=== PATIENT | female | born 1955 | race Caucasian/White ===

== ENCOUNTER 2018-04-29 03:38 | Inpatient (IN) ==
[2018-04-29] MEDS ORDERED: Sod Chloride 0.9% Inj 1,000 ML IV.SIG ONE (04:09)
[2018-04-29] MEDS ORDERED: Morphine Sulfate Inj 8 MG/ML Vial IV.PUSH ONE (04:09)
[2018-04-29 04:32] LABS: Baso % (Auto) 0.4 % (0.0-2.0); Eos # (Auto) 0.1 th/mm3 (0.0-0.4); Eos % (Auto) 1.3 % (0.0-4.0); Hematocrit 39.1 % (35.0-46.0); Hemoglobin 13.6 gm/dL (11.6-15.3); Lymph # (Auto) 2.3 th/mm3 (1.0-4.8); Lymph % (Auto) 22.8 % (9.0-44.0); Mean Corpuscular HGB Conc 34.7 % (32.0-36.0); Mean Corpuscular Hemoglobin 30.9 pg (27.0-34.0); Mean Corpuscular Volume 89.1 fL (80.0-100.0); Mean Platelet Volume 7.5 fL (7.0-11.0); Mono # (Auto) 0.7 th/mm3 (0.0-0.9); Mono % (Auto) 7.2 % (0.0-8.0); Neut # (Auto) 6.8 th/mm3 (1.8-7.7); Neut % (Auto) 68.3 % (16.0-70.0); Platelet Count 223 th/mm3 (150-450); Red Blood Count 4.39 mil/mm3 (4.00-5.30); Red Cell Distribution Width 13.7 % (11.6-17.2); White Blood Count 9.9 th/mm3 (4.0-11.0)
[2018-04-29 04:45] LABS: Alanine Aminotransferase 25 U/L (10-53); Albumin 3.6 g/dL (3.4-5.0); Anion Gap 8 meq/L (5-15); Aspartate Aminotransferase 22 U/L (15-37); Blood Urea Nitrogen 20 mg/dL (7-18); Calcium 8.6 mg/dL (8.5-10.1); Carbon Dioxide 29.2 meq/L (21.0-32.0); Chloride 105 meq/L (98-107); Glomerular Filtration Rate 59 mL/min (>89); Glucose,Random 129 mg/dL (74-106); Lipase 190 U/L (73-393); Magnesium 2.1 mg/dL (1.5-2.5); Potassium 3.7 meq/L (3.5-5.1); Sodium 142 meq/L (136-145)
[2018-04-29 04:48] LABS: Alkaline Phosphatase 98 U/L (45-117); Total Protein 7.4 g/dL (6.4-8.2)
--- NOTE | 2018-04-29 05:14 | ED ---
HPI General Chief Complaint: Abdominal Pain Stated Complaint: ABD pain Time Seen by Provider: 04/29/18 04:02 Source: patient Mode of arrival: ambulatory Limitations: no limitations History of Present Illness HPI narrative: 62 yo F c/o abdominal pain for approx 1 hour, onset sudden, timing constant. pain is severe. location is LUQ. + dysuria and frequency for past several days. pt denies fever. one episode vomiting occurred yesterday evening, which was an unexpected otherwise isolated event. no diarrhea. normal diet lately. no similar prior episodes. pt denies current followup with PMD. pt reports hx occasional benign peripheral vertigo rarely requiring treatment. Related Data Previous Rx's Medication Instructions Recorded ondansetron HCl [Zofran] 4 mg PO Q8H PRN 4 Days tab 04/29/18 oxycodone-acetaminophen [Percocet] 2 tab PO Q4-6H PRN 3 Days #12 tab 04/29/18 tamsulosin [Flomax] 0.4 mg PO DAILY #7 cap 04/29/18 Allergies Allergy/AdvReac Type Severity Reaction Status Date / Time No Known Allergies Allergy Verified 04/29/18 03:42 Review of Systems ROS: all other systems reviewed are negative [facility] Medical History Medical History History of hysterectomy (Acute) Patient denies medical problems (Acute) Surgical History Surgical History History of abdominoplasty (Acute) History of carpal tunnel surgery (Acute) Hx of breast reduction, elective (Acute) Hx of cholecystectomy (Acute) Social History Social History Smoking Status: Never smoker How Often Do You Have a Drink Containing Alcohol: Never Recent Travel in [facility] within the Last 8 Weeks: No Recent Out of Country Travel within the Last 8 Weeks: No Immunization History Tetanus Immunization: >5 Years Exam Narrative Exam Narrative: GENERAL: 62 yo F, WNWD, moderate distress 2/2 pain SKIN: Focused skin assessment warm/dry. HEAD: Atraumatic. Normocephalic. EYES: Pupils equal and round. No scleral icterus. No injection or drainage. ENT: No nasal bleeding or discharge. Mucous membranes pink and moist. NECK: Trachea midline. No JVD. CARDIOVASCULAR: Regular rate and rhythm. No murmur appreciated. RESPIRATORY: No accessory muscle use. Clear to auscultation. Breath sounds equal bilaterally. GASTROINTESTINAL: Soft. TTP LUQ. MUSCULOSKELETAL: No obvious deformities. No clubbing. No cyanosis. No edema. NEUROLOGICAL: Awake and alert. No obvious cranial nerve deficits. Motor grossly within normal limits. Normal speech. PSYCHIATRIC: Appropriate mood and affect; insight and judgment normal. Course Initial Documented Vital Signs Temperature 98.4 F 04/29/18 03:42 Pulse Rate 77 04/29/18 03:42 Respiratory Rate 20 04/29/18 03:42 Blood Pressure 147/65 H 04/29/18 03:42 Pulse Oximetry 100 04/29/18 03:42 Last Documented Vital Signs Temperature 98.4 F 04/29/18 03:42 Pulse Rate 64 04/29/18 06:00 Respiratory Rate 16 04/29/18 06:00 Blood Pressure 119/59 L 04/29/18 06:00 Pulse Oximetry 97 04/29/18 06:00 Medical Decision Making MDM Narrative Medical decision making narrative: wbc 9,900 hb 13.6 plt 223 bun/cr 20/0.97 lfts normal lipase normal ct abd/pelvis: (1) ct findings characteristic of prior cholecystectomy, hysterectomy and gastric bypass. (2) Patient's symptoms appear to be due to a 4mm left uereteric stone near the upj/proximal ureter with concomitant pelvocaliectasis of the left renal collecting system. (3) Very mild diverticular disease of the descending and sigmoid colon without diverticulitis. Multiple episodes of vomiting here in ED. Compazine and benadryl ultimately controlled vomiting. Pain effectively managed with toradol thereafter. Given multiple doses of antiemetics coupled with UTI and 4mm UPJ stoned with pelvocaliectasis, admission will be arranged for IV abx, antiemesis and pain control. d/w Dr Persaud for [facility]. Medical Screen Exam Complete: Yes Emergency Medical Condition: Yes Lab Data Result diagrams: 04/29/18 04:20 04/29/18 04:20 Lab Results 04/29/18 04/29/18 04/29/18 Range/Units 04:20 04:20 05:25 WBC 9.9 (4.0-11.0) th/mm3 RBC 4.39 (4.00-5.30) mil/mm3 Hgb 13.6 (11.6-15.3) gm/dL Hct 39.1 (35.0-46.0) % MCV 89.1 (80.0-100.0) fL MCH 30.9 (27.0-34.0) pg MCHC 34.7 (32.0-36.0) % RDW 13.7 (11.6-17.2) % Plt Count 223 (150-450) th/mm3 MPV 7.5 (7.0-11.0) fL Neut % (Auto) 68.3 (16.0-70.0) % Lymph % (Auto) 22.8 (9.0-44.0) % [place] % (Auto) 7.2 (0.0-8.0) % Eos % (Auto) 1.3 (0.0-4.0) % Baso % (Auto) 0.4 (0.0-2.0) % Neut # (Auto) 6.8 (1.8-7.7) th/mm3 Lymph # (Auto) 2.3 (1.0-4.8) th/mm3 [place] # (Auto) 0.7 (0.0-0.9) th/mm3 Eos # (Auto) 0.1 (0.0-0.4) th/mm3 Baso # (Auto) 0.0 (0.0-0.2) th/mm3 WBC Differential . Differential Comment Auto diff final Sodium 142 (136-145) meq/L Potassium 3.7 (3.5-5.1) meq/L Chloride 105 (98-107) meq/L Carbon Dioxide 29.2 (21.0-32.0) meq/L Anion Gap 8 (5-15) meq/L BUN 20 H (7-18) mg/dL Creatinine 0.97 (0.50-1.00) mg/dL Estimated GFR 59 L (>89) mL/min Random Glucose 129 H (74-106) mg/dL Calcium 8.6 (8.5-10.1) mg/dL Magnesium 2.1 (1.5-2.5) mg/dL Total Bilirubin 0.4 (0.2-1.0) mg/dL AST 22 (15-37) U/L ALT 25 (10-53) U/L Alkaline Phosphatase 98 (45-117) U/L Total Protein 7.4 (6.4-8.2) g/dL Albumin 3.6 (3.4-5.0) g/dL Lipase 190 (73-393) U/L Urine Color Yellow (Yellw/Straw) Urine Clarity Hazy H (Clear) Urine pH 6.0 (5.0-8.5) Ur Specific [place] 1.011 (1.002-1.035) Urine Protein 30 H (Neg-Trace) mg/dL Urine Glucose (UA) Negative (Negative) mg/dL Urine Ketones Negative (Negative) mg/dL Urine Occult Blood Moderate H (Negative) Urine Nitrate Negative (Negative) Urine Bilirubin Negative (Negative) Urine Urobilinogen Less than 2 (Less than 2) mg/dL Ur Leukocyte Esterase Large H (Negative) Urine RBC 3 (0-3) /hpf Urine WBC (0-5) /hpf Ur Squamous Epith Cells <1 (0-5) /hpf Urine Bacteria Rare H (None) /hpf Urine Mucus Few H (Occasional) /lpf Micro UA Comment Culture indicated Ur Microscopic Review Not Reportable Urine Culture Comments Culture indicated Imaging Data Radiologist's impression: Abdomen/Pelvis CT 04/29/18 04:09 CONCLUSION: 1. CT findings characteristic of prior cholecystectomy, hysterectomy and gastric bypass. 2. Patient's symptoms appear to be due to a 4 mm left ureteric stone near the UPJ/proximal ureter with concomitant pelvocaliectasis of the left renal collecting system. 3. Very mild diverticular disease of the descending and sigmoid colon without diverticulitis. Discharge Plan Discharge Disposition Patient Disposition: ED Admit(ED Internal Use Only) Discharge Condition Condition: Stable Discharge Details Diagnosis: Calculus of left ureter Physicians Team ED Provider: Dixon Flores Primary Care Provider: Primary Care Ayana Snyder Rxs /Orders / Referrals /Forms Prescriptions: New ondansetron HCl [Zofran] 4 mg tablet 4 mg PO Q8H PRN (Reason: nausea and vomiting) 4 Days RF: 0 oxycodone-acetaminophen [Percocet] 5-325 mg tablet 2 tab PO Q4-6H PRN (Reason: pain) 3 Days Qty: 12 RF: 0 tamsulosin [Flomax] 0.4 mg capsule,extended release 24hr 0.4 mg PO DAILY Qty: 7 RF: 0 Referrals: Gio Weiss DO [UROLOGY] - 3 Days Discharge Interventions Interventions: Vital Signs Last Done: 04/29/18 06:00 Status ED Status: With Doctor
--- NOTE | 2018-04-29 05:20 | CT ---
EXAM DATE: 04/29/2018 4:33 AM EST AGE/SEX: 62 years / Female INDICATIONS: Left side abdominal pain with nausea. CLINICAL DATA: This is the patient's initial encounter. Patient reports that signs and symptoms have been present for 1 day and indicates a pain score of 9/10. MEDICAL/SURGICAL HISTORY: None. Cholecystectomy. Hysterectomy. Breast augmentation. Abdomino plasty. RADIATION DOSE: 15.14 CTDI (mGy) COMPARISON: No prior exams available for comparison. TECHNIQUE: Multiple contiguous axial images were obtained through the abdomen. Images were obtained using multiple row detector helical technique. Using automated exposure control and adjustment of the mA and/or kV according to patient size, radiation dose was kept as low as reasonably achievable to o btain optimal diagnostic quality images. DICOM format image data is available electronically for rev iew and comparison. FINDINGS: Lower Lungs: The visualized lower lungs are clear. Liver: The liver has a homogeneous density without space-occupying lesion. There is no dilation of th e biliary tree. Patient is status post cholecystectomy.. Spleen: Homogeneous density without enlargement. Pancreas: Unremarkable without mass or calcification. Kidneys: Pelvocaliectasis of the left renal collecting system appears to be due to a 4 mm stone near the UPJ. Right kidney and ureter are radiographically normal Adrenal Glands: Unremarkable. Aorta: The aorta and proximal iliac vessels are grossly unremarkable without aneurysmal dilation. Bowel/Mesentery: Some diverticular disease of the sigmoid colon without concomitant evidence of dive rticulitis. Surgical clips overlying the stomach may represent prior bypass surgery with a gastric pa rtition. The appendix is identified and is radiographically normal. Abdominal Wall: 2.2 cm umbilical hernia only contains fat Retroperitoneum: No evidence of adenopathy in the retrocrural, para-aortic, or deep pelvic regions. Bladder: Contours are smooth. Reproductive Organs: Patient is status post hysterectomy. Inguinal: The inguinal region is unremarkable without evidence of adenopathy. Bony Structures: Unremarkable. CONCLUSION: 1. CT findings characteristic of prior cholecystectomy, hysterectomy and gastric bypass. 2. Patient's symptoms appear to be due to a 4 mm left ureteric stone near the UPJ/proximal ureter wi th concomitant pelvocaliectasis of the left renal collecting system. 3. Very mild diverticular disease of the descending and sigmoid colon without diverticulitis. Electronically signed by: David Ramírez MD Board Certified Radiologist 04/29/2018 5:19 AM EST
[2018-04-29] MEDS ORDERED: Ketorolac Inj 30 MG/ML (IVP) Vial IV.PUSH ONE (05:27)
[2018-04-29 06:13] LABS: Bacteria,Urine Rare /hpf; Bilirubin,Urine Negative (Negative); Clarity,Urine Hazy (Clear); Color,Urine Yellow (Yellw/Straw); Glucose,Urine (UA) Negative (Negative); Leukocyte Esterase,Urine Large (Negative); Mucus,Urine Few /lpf (Occasional); Nitrite,Urine Negative (Negative); Specific Gravity,Urine 1.011 (1.002-1.035); Squamous Epithelial Cell,Urine <1 /hpf (0-5)
[2018-04-29] MEDS ORDERED: Ciprofloxacin 500 MG Tablet PO ONE (06:15)
[2018-04-29] MEDS ORDERED: Morphine Sulfate Inj 2 MG/ML Vial IV.PUSH PRN (06:51)
[2018-04-29] MEDS ORDERED: Acetaminophen 325 MG Tablet PO PRN (06:52)
[2018-04-29] MEDS ORDERED: Bisacodyl 10 MG Supp RECTAL PRN (06:52)
[2018-04-29] MEDS ORDERED: Zolpidem Tartrate 5 MG Tablet PO PRN (06:52)
[2018-04-29] MEDS ORDERED: Sod Chloride 0.9% Inj 1,000 ML IV.CONT SCH (07:00)
--- NOTE | 2018-04-29 07:49 | P.HPIM ---
History of Present Illness Primary Care Physician: No Primary Care Physician Chief Complaint: left flank pain History of Present Illness: patient is a 62 y/o female with no significant past medical history who presented to ER with left flank pain. she says that she woke up with the pain this morning. pain was moderate in intensity and was associated with nausea and vomiting. she denies any fever,chills, gross hematuria or dysuria. pain was mild at the time of my evaluation. Inpatient Certification Inpatient Certification: I certify that the inpatient services were ordered in accordance with Medicare regulations governing the order. This includes certification that hospital inpatient services are reasonable and necessary and in the case of services not specified as inpatient-only under 42 CFR 419.22(n), that they are appropriately provided as inpatient services in accordance to with the 2-midnight benchmark under 43 CFR 412.3(e) Estimated Total Length of Stay (Days): 2 Plans for Post Hospital Care: Home Review of Systems Review of Systems: all other systems reviewed are negative [facility] Medical History Medical History History of hysterectomy (Acute) Patient denies medical problems (Acute) Surgical History Surgical History History of abdominoplasty (Acute) History of carpal tunnel surgery (Acute) Hx of breast reduction, elective (Acute) Hx of cholecystectomy (Acute) Family History Family History Other No pertinent family history Social History Social History Smoking Status: Never smoker How Often Do You Have a Drink Containing Alcohol: Never Recent Travel in [place] within the Last 8 Weeks: No Recent Out of Country Travel within the Last 8 Weeks: No Immunization History Tetanus Immunization: >5 Years Medications and Allergies Allergies Allergy/AdvReac Type Severity Reaction Status Date / Time No Known Allergies Allergy Verified 04/29/18 03:42 Active Medications: Active Medications Acetaminophen (Tylenol) 650 mg PO Q4H PRN PRN Reason: Temp > 100.4 Al Hydroxide/Mg Hydroxide (Milk Of Magnesia Liq) 30 ml PO Q12H PRN PRN Reason: Mild Constipation Bisacodyl (Dulcolax Supp) 10 mg RECTAL DAILY PRN PRN Reason: SEVERE CONSITIPATION Ceftriaxone Sodium 1,000 mg/ (Sodium Chloride) 100 mls @ 200 mls/hr IV.SIG Q24H NELIA Sodium Chloride (Ns Inj) 1,000 mls @ 100 mls/hr IV.CONT .Q10H NELIA Lactulose (Lactulose Liq) 30 ml PO DAILY PRN PRN Reason: SEVERE CONSITIPATION Morphine Sulfate (Morphine Inj) 2 mg IV.PUSH Q3H PRN PRN Reason: pain > 3 Ondansetron HCl (Zofran Inj) 4 mg IV.PUSH Q6H PRN PRN Reason: NAUSEA OR VOMITING Senna/Docusate Sodium (Araceli-Colace) 1 tab PO BID NELIA Sennosides (Senokot) 17.2 mg PO Q12H PRN PRN Reason: Moderate Constipation Sodium Chloride (Ns Flush) 2 ml IV.FLUSH PRN PRN PRN Reason: FLUSH AFTER USING IV ACCESS Last Admin: 04/29/18 05:25 Dose: 2 ml Sodium Chloride (Ns Flush) 2 ml IV.FLUSH BID NELIA Sodium Chloride (Ns Flush) 2 ml IV.FLUSH PRN PRN PRN Reason: FLUSH AFTER USING IV ACCESS Zolpidem Tartrate (Ambien) 5 mg PO HS PRN PRN Reason: INSOMNIA Physical Exam Vital signs: Vital Signs 04/29/18 03:42 04/29/18 05:00 04/29/18 06:00 Temperature 98.4 F Pulse Rate 77 68 64 Respiratory Rate 20 16 16 Blood Pressure 147/65 H 125/57 L 119/59 L Pulse Oximetry 100 100 97 Intake & Output 04/28/18 04/29/18 04/29/18 18:59 06:59 18:59 Intake Total 1000 / 1000 Balance 1000 / 1000 Weight 86.183 kg Intake: IV 1000 / 1000 NS Inj 1,000 ML @ Wide Open IV. 1000 / 1000 SIG BOLUS ONE Rx#:[id number] Constitutional no acute distress Routine HEENT Exam Eye: Present PERRL Routine Neck Exam Present supple Routine Respiratory Exam Present CTA bilaterally Routine Cardiovascular Exam Present RRR Routine Abdominal Exam Present soft Routine Extremities Exam Comments: no pedal edema. Routine Neurological Exam Present alert and oriented X3 Results Labs CBC & Chem 7: 04/29/18 04:20 04/29/18 04:20 Imaging Impressions Abdomen/Pelvis CT 04/29/18 04:09 CONCLUSION: 1. CT findings characteristic of prior cholecystectomy, hysterectomy and gastric bypass. 2. Patient's symptoms appear to be due to a 4 mm left ureteric stone near the UPJ/proximal ureter with concomitant pelvocaliectasis of the left renal collecting system. 3. Very mild diverticular disease of the descending and sigmoid colon without diverticulitis. Caprini VTE Risk Assessment Caprini VTE Risk Assessment: No/Low Risk (score <= 1) Caprini Risk Assessment Model: Point Value = 1 Point Value = 2 Point Value = 3 Point Value = 5 Age 41-60 Minor surgery BMI > 25 kg/m2 Swollen legs Varicose veins or History of unexplained or recurrent spontaneous Oral contraceptives or hormone replacement Sepsis (< 1 month) Serious lung disease, including pneumonia (< 1 month) Abnormal pulmonary function Acute myocardial infarction Congestive heart failure (< 1 month) History of inflammatory bowel disease Medical patient at bed rest Age 61-74 Arthroscopic surgery Major open surgery (> 45 min) Laparoscopic surgery (> 45 min) Malignancy Confined to bed (> 72 hours) Immobilizing plaster cast Central venous access Age >= 75 History of VTE Family history of VTE Factor V Leiden Prothrombin [id number] Lupus anticoagulant Anticardiolipin antibodies Elevated serum homocysteine Heparin-induced thrombocytopenia Other congenital or acquired thrombophilia Stroke (< 1 month) Elective arthroplasty Hip, pelvis, or leg fracture Acute spinal cord injury (< 1 month) Prophylaxis Regimen: Total Risk Factor Score Risk Level Prophylaxis Regimen 0-1 Low Early ambulation 2 Moderate Order ONE of the following: *Sequential Compression Device (SCD) *Heparin 5000 units SQ BID 3-4 Higher Order ONE of the following medications: *Heparin 5000 units SQ TID *Enoxaparin/Lovenox 40 mg SQ daily (WT < 150 kg, CrCl > 30 mL/min) *Enoxaparin/Lovenox 30 mg SQ daily (WT < 150 kg, CrCl > 10-29 mL/min) *Enoxaparin/Lovenox 30 mg SQ BID (WT < 150 kg, CrCl > 30 mL/min) AND/OR *Sequential Compression Device (SCD) 5 or more Highest Order ONE of the following medications: *Heparin 5000 units SQ TID (Preferred with Epidurals) *Enoxaparin/Lovenox 40 mg SQ daily (WT < 150 kg, CrCl > 30 mL/min) *Enoxaparin/Lovenox 30 mg SQ daily (WT < 150 kg, CrCl > 10-29 mL/min) *Enoxaparin/Lovenox 30 mg SQ BID (WT < 150 kg, CrCl > 30 mL/min) AND *Sequential Compression Device (SCD) Assessment and Plan Plan A/P - Nephrolithiasis keep NPO- Urology consulted- continue IV antibiotic and follow the UC- continue with supportive care with IV fluid and pain control. Discussed Condition With: the patient. Discharge Planning: home when cleared by Urology.
[2018-04-29] MEDS ORDERED: Senna/Docusate Sodium 8.6/50 MG Tablet PO SCH (09:00)
[2018-04-29 16:00] VITALS: BP 126/56; PULSE 52; RESP 18; TEMP 98.1; O2SAT 100
== END 2018-04-29 14:46 | disposition left against medical advice (07) | DRG 694 ==
LOC: NEPE 03:38 → NEDA 03:38
PROVIDERS: ADMIT Internal Medicine; ATTEND Internal Medicine
CPT/HCPCS: 74176; 80053; 81001; 83690; 83735; 85025; 87077; 87086; 87186; 90761; 90774; 90775; 90784; 96361; 96374; 96375; 99285; C8952; J0696; J0780; J1200; J1885; J2270; J2405; J7030